=== PATIENT | female | born 1995 | race Caucasian/White ===

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

== ENCOUNTER → 2017-09-18 | Outpatient (CLI) | payer OTHER ==
[~2017-09-18] MED LIST changes: -ATROPINE SULFATE 0.1 MG/ML 5ML SYR IV PRN; -BUPIVACAINE 0.5 % 5 MG/1 ML MPF 30ML VIAL ONE; -BUPIVACAINE/EPINEPHRINE 0.25% 1:200,000 30 ML VIAL ONE; -CEFAZOLIN 2000 MG/60 ML D5W IV SCH; -DEXAMETHASONE SOD INJ 4 MG/ML VIAL ONE; -EpHEDrine SULFATE INJ 50 MG/ML AMP IV PRN; -EpINEphrine INJ 1MG/ML AMP 1 MG/ML AMP ONE; -FENTANYL CITRATE INJ 50 MCG/1 ML 2 ML VIAL IV PRN; -FENTANYL CITRATE INJ 50 MCG/1 ML 2 ML VIAL ONE; -HYDROmorphone INJ 0.5 MG/0.5 ML SYR ONE; -HYDROmorphone INJ 2 MG/ML SYR/VIAL IV PRN; -LACTATED RINGER'S 1000ML 1,000 ML IV SCH; -LIDOCAINE HCL 2% 2 ML VIAL (20MG/ML) ONE; -LIDOCAINE/EPINEPHRINE 1% INJ 50 ML VIAL ONE; -MIDAZOLAM HCL 1 MG/ML 2ML VIAL ONE; -MoRPHine SULFATE 2 MG/ML CARP IV PRN; -MoRPHine SULFATE 4 MG/ML 1 ML CARP\\VIAL IV PRN; -ONDANSETRON INJ 2 MG/ML 2 ML VIAL IV PRN; -ONDANSETRON INJ 2 MG/ML 2 ML VIAL ONE; -OXYCODONE/ACETAMINOPHEN 5-325 TAB PO PRN; -PHENYLEPHRINE 100MCG/ML 5ML SYR IV PRN; -PROPOFOL IV EMULSION 10 MG/ML 20 ML VIAL IV ONE; -SCOPOLAMINE 1.5 MG TDSY TD ONE
--- NOTE | 2017-09-18 11:20 | DIAGNOSTIC IMAGING REPORT ---
R KNEE 4 OR MORE CLINICAL HISTORY: RIGHT KNEE PAIN pain COMPARISON: None. DISCUSSION: The bones and joint spaces appear intact. There is no evidence of fracture, dislocation or bony disease. There is no evidence for soft tissue swelling. IMPRESSION: Negative study. The above report was generated using voice recognition software. It may contain grammatical, syntax or spelling errors. Electronically signed by: Berlin Proctor M.D. 09/18/2017 11:19 AM Dictated Date/Time: 09/18/2017 11:18 AM
== END | disposition home or self-care (01) ==
LOC: C.RDSM 10:59
PROVIDERS: ATTEND Internal Medicine
DX: S89.91XA Unspecified injury of right lower leg, initial encounter (principal); X58.XXXA Exposure to other specified factors, initial encounter

== ENCOUNTER → 2017-10-06 | Outpatient (CLI) | payer OTHER ==
--- NOTE | 2017-10-06 08:54 | DIAGNOSTIC IMAGING REPORT ---
R LOWER EXT JOINT WITHOUT CLINICAL HISTORY: R KNEE INJURY trauma. Pain. TECHNIQUE: Multiaxial MRI acquisition COMPARISON STUDY: None FINDINGS: Findings of bone contusions involving the posterior aspect of the medial tibial plateau with similar findings of the lateral tibial plateau. Focal contusion central lateral femoral condyle with mild flattening of the associated articular surface. A very slight impaction deformity is most likely present. Signal characteristics of the medial femoral condyle are unremarkable. There is no significant joint effusion. There is tear of the anterior cruciate ligament. This is considered a high-grade partial tear. Posterior cruciate ligament is intact. The quadriceps tendon as well as infrapatellar tendon are intact. The patellar articulating surface is unremarkable. No evidence for chondromalacia patella. Medial lateral patellar retinaculum are intact. Mild sprain lateral collateral ligament. Medial collateral ligament is intact. Evaluation of the menisci show both medial as well as lateral menisci to be unremarkable in signal character as well as configuration. IMPRESSION: 1. High-grade partial tear anterior cruciate ligament. 2. Contusions of the posterior aspects of the medial and lateral tibial plateau. 3. Focal contusion central aspect lateral femoral condyle with mild flattening of the associated articular services. 4. Mild sprain lateral collateral ligament. The above report was generated using voice recognition software. It may contain grammatical, syntax or spelling errors. Electronically signed by: Berlin Proctor M.D. 10/06/2017 8:53 AM Dictated Date/Time: 10/06/2017 8:48 AM
== END | disposition home or self-care (01) ==
LOC: C.MRI 07:46
PROVIDERS: ATTEND Internal Medicine
DX: S83.511A Sprain of anterior cruciate ligament of right knee, initial encounter (principal); S80.01XA Contusion of right knee, initial encounter; X58.XXXA Exposure to other specified factors, initial encounter